=== PATIENT | male | born 1940 | race Caucasian/White ===

== ENCOUNTER 2016-09-05 19:13 | Inpatient (IN) | payer MEDICARE, OTHER ==
[~2016-09-05] VITALS: Ht 182.9 cm; Wt 120.0 kg
--- NOTE | ~2016-09-05 | ECH ---
Transthoracic Echocardiography Report (TTE) Demographics Patient Name DILIA GREENE V Date of Study 09/06/2016 Patient Number [id number] Visit Number [id number] Date of 1940 Room Number 306 Accession Number [id number] Gender Male Age 75 year(s) Referring Inga Do Silverware Etcher Krystal Johnston [facility] Physician Physician Interpreting Beverly Carrasco Industrial Fabric Cutter Physician MD Supervising Ordering Physician Inga Do MD, MD/P Nurse Stress Telephone Interceptor Operator Conclusions Summary Technically fair exam. The estimated left ventricular ejection fraction is 40-45% The left ventricle is mildly dilated . Mildly reduced right ventricular function. Mildly dilated right ventricle. The right atrium is mild to moderately dilated. Mild mitral regurgitation by color Doppler. The patient is known to have a tissue aortic valve, no other information available at this time. Mean gradient across valve 11mmHg, peak velocity 2.2m/s found at apex. There is mild periprosthetic regurgitation. Mild tricuspid regurgitation by color Doppler. There is mild pulmonary hypertension. The pulmonary pressure (RVSP) is 41 mmHg. Procedure Type of Study TTE procedure:Echo Complete SF. Procedure Date Date: 09/06/2016 Start: 07:42 AM Technical Quality: Fair due to body habitus. Indications:Shortness of breath, paroxysmal a-fib and Congestive heart failure. Additional Indications:tissue AVR no other info available Appropriate Use Criteria: 9 Height: 72 inches Weight: 261 pounds BSA: 2.39 m Rhythm: Atrial fibrillation HR: 96 bpm BP: 109/57 mmHg M-Mode/2D Measurements LV Diastolic Dimension: 6.15 cm LV Systolic Dimension: 5.37 cm LV Septum Diastolic: 0.95 cm LV PW Diastolic: 1.03 cm AO Root Dimension: 2.44 cm LA Dimension: 3.68 cm RV Diastolic Dimension: 3.17 cm LA volume: 62.21 ml LA volume index: 26 ml/m LVOT VTI: 28.3 cm RV Base: 4.7 cm RV Mid: 3.4 cm RV Length: 7.6 cm TAPSE: 1.4 cm TDI-S': 13 cm/s Doppler Measurements AV Peak Velocity: 2.2 m/s MV Peak E-Wave: 1.08 m/s AV Peak Gradient: 19.36 mmHg AV Mean Gradient: 11.07 mmHg MV P1/2t: 59.1 msec LVOT Peak Velocity: 1.73 m/s MV Deceleration Time: 174 msec AV P1/2t: 283.6 msec MV Area (PHT): 3.72 cm TR Velocity:3.03 m/s PV Peak Velocity: 0.94 m/s TR Gradient:36.75 mmHg PV Peak Gradient: 3.5 mmHg Estimated RAP:5 mmHg Estimated PASP: 41.75 mmHg Estimated RVSP: 42 mmHg A' Lateral Velocity: 0.05 m/s E' Lateral Velocity: 0.1 m/s RA Area: 26.56 cm Findings Left Ventricle The left ventricle is mildly dilated . Diastolic function indeterminate due to patient's arrhythmia. Right Ventricle Mildly reduced right ventricular function. Mildly dilated right ventricle. Left Atrium Normal left atrial size. Right Atrium The right atrium is mild to moderately dilated. Mitral Valve Mild mitral annular calcification. Mild mitral regurgitation by color Doppler. Aortic Valve The patient is known to have a tissue aortic valve, no other information available at this time. Mean gradient across valve 11mmHg found at apex. There is mild periprosthetic regurgitation. There is mild aortic regurgitation by color Doppler. Tricuspid Valve Normal appearing tricuspid valve. Mild tricuspid regurgitation by color Doppler. There is mild pulmonary hypertension. The pulmonary pressure (RVSP) is 41 mmHg. Pulmonic Valve The pulmonic valve is not well visualized. Mild pulmonic valve regurgitation by color Doppler. Pericardial Effusion No evidence of pericardial effusion. Miscellaneous Visualized portions of the aortic root and ascending aorta appear normal in size. Pleural Effusion No evidence of pleural effusion. Contractility Score LV regional wall motion:(0-Non visualized 1-Normal 2-Hypokinesis 3-Akinesis 4-Dyskinesis 5-Aneurysm) Signature
--- NOTE | 2016-09-06 00:12 | ER ---
ADMIT: 09/05/2016 RM/LOC: 306 [facility] MR#: [id number] [address] [facility] [place], [place] [address] [place] [address] [place] [address] Emergency Room Report SEX: M AGE: 75 : 1940 DATE: 09/05/2016 CHIEF COMPLAINT: Respiratory distress. HISTORY OF PRESENT ILLNESS: The patient is a 75-year-old male with paroxysmal atrial fib, CHF, type 2 diabetes, hypertension, hyperlipidemia, chronic kidney disease, COPD, traveling from [place] the past week through [place] when he became increasingly short of breath, weak 3-4 days ago. Admits to diffuse body aches, nonproductive cough. ALLERGIES: VIOXX, PENICILLIN, CITRUS, TETANUS. MEDICATIONS: Please see nurse's MAR. PAST MEDICAL HISTORY: Paroxysmal atrial fib, CHF, type 2 diabetes, hypertension, hyperlipidemia, GERD, seasonal allergic rhinitis with chronic sinusitis, gout, low vitamin D, chronic kidney disease stage III, degenerative disk disease, degenerative joint disease, primarily knees, COPD, bladder cancer, transitional cell carcinoma. PAST SURGICAL HISTORY: Multiple cystoscopies, multiple knee arthroscopies, tonsillectomy, finger amputation, aortic valve replacement tissue in 2008 at [facility]. SOCIAL HISTORY: , previous smoker, quit 2008 after a three pack per day for 55 years totaling 165 pack-years. 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 FAMILY HISTORY: Positive for premature ischemic heart disease. REVIEW OF SYSTEMS: A 12-point review of systems is negative for all other systems, illnesses, or operations except as outlined above. PHYSICAL EXAMINATION: VITAL SIGNS: Temp 98, pulse 122/105, heart rate 108, respirations 30, SaO2 of 96% on room air, weight 121.5 kg, up 7.3 pounds since the of the last week when he was in [place]. GENERAL: Moderate distress, diaphoretic, respiratory distress. HEENT: Normocephalic. No evidence of epistaxis, rhinorrhea, or otorrhea. NECK: Supple without lymphadenopathy or thyromegaly. CHEST: Breath sounds equal with expiratory wheeze noted throughout. HEART: Tachycardic, irregular without murmur or gallop. 2+ pedal ankle edema. ABDOMEN: Soft, obese, nontender, and nondistended. Bowel sounds hypoactive. EXTREMITIES: Multiple abrasions. Mild cellulitis, anterior shins. NEURO: EOMI. PERRLA. No evidence of drift, dysarthria, or ataxia. Gait not assessed due to weakness. MEDICAL DECISION MAKING: EKG shows atrial fibrillation with RVR, rate of 110, nonspecific interventricular conduction delay. AFib has replaced sinus rhythm ADMIT: 09/05/2016 RM/LOC: 306 [facility] MR#: [id number] [address] [place] [phone] [place] [address] [place] [address] Emergency Room Report SEX: M AGE: 75 : 1940 since 2014. WBC 23.1, hemoglobin 12.3, CRP 43.4. Sodium 120, bicarb 15, glucose 213, creatinine 2.2. Lactic 7.8, INR 1.29, calcium 7.6, magnesium 0.8, anion gap 31, CK 825, MB 15.2, troponin 0.25. BNP 27,979, procalcitonin 5.94. The patient was given two DuoNeb, Solu-Medrol, magnesium with marked improvement, Lasix 40 mg IV push, Levaquin 500 mg IV piggyback. Discussed findings and disposition with Dr. Xiong, who agreed and requested ICU to call for orders. Due to the patient's presentation, findings, and intervention, 30 minutes of critical care is warranted. DIAGNOSES: 1. Paroxysmal atrial fibrillation with rapid ventricular response. 2. Hyponatremia. 3. Hypomagnesemia. 4. Acute exacerbation of chronic obstructive pulmonary disease. 5. Chronic kidney disease, stage II. 6. Congestive heart failure. 7. Severe sepsis syndrome. RECOMMENDATION: Admit inpatient ICU, Dr. Xiong. ADMISSION/DISCHARGE CONDITION: Fair. CODE STATUS: The patient is a full code. Hermann Cooper MD/ modl JOB #: [id number] CC: Smooth Xiong MD, Attending Physician Smooth Xiong MD, Family Physician Smooth Xiong MD
[2016-09-10] MEDS ORDERED: CARDIZEM CD300 MG PO (10:55)
[2016-09-10] MEDS ORDERED: ALDACTONE DPS25 MG PO (10:55)
[2016-09-10] MEDS ORDERED: OMEPRAZOLE40 MG PO (10:55)
[2016-09-10] MEDS ORDERED: DEMADEX20 MG PO (10:55)
[2016-09-10] MEDS ORDERED: ASA325 MG PO (10:56)
[2016-09-10] MEDS ORDERED: VITAMIN D1000 UNI1 PO (10:56)
[2016-09-10] MEDS ORDERED: ALLEGRA DPS180 MG PO (10:56)
[2016-09-10] MEDS ORDERED: MICRO-K DPS10 MEQ PO (10:56)
[2016-09-10] MEDS ORDERED: ZYLOPRIM-DPS300 MG PO (10:58)
[2016-09-10] MEDS ORDERED: APAP PO (10:58)
[2016-09-10] MEDS ORDERED: HYDRO PO (10:58)
[2016-09-10] MEDS ORDERED: LIPITOR40 MG PO (11:00)
[2016-09-10] MEDS ORDERED: FOLIC ACID0.4 MG PO (11:01)
[2016-09-10] MEDS ORDERED: DULERA 200/58.8 GM IH (11:01)
[2016-09-10] MEDS ORDERED: GLUCOTROL DPS5 MG PO (11:02)
[2016-09-10] MEDS ORDERED: SPIRIVA18 MCG IH (11:02)
[2016-09-10] MEDS ORDERED: DELTASONE DPS10 MG PO (11:02)
--- NOTE | 2016-09-17 14:37 | CO ---
ADMIT: 09/05/2016 RM/LOC: 420 [facility] MR#: [id number] 26[address] [facility] [address] [place] [phone] DILIA [place] [address] [place] [address] Consultation SEX: M AGE: 75 : 1940 Corrected: 09/07/20162015 ajf DATE OF CONSULTATION: 09/07/2016 ATTENDING PHYSICIAN: Smooth Xiong CONSULTING PHYSICIAN: Nimesh Del Cid MD REASON FOR CONSULT: Elevated troponin with ejection fraction of 40% to 45%. This is Gayatri Simon RN, scribing for Dr. Santiago Del Cid. HISTORY OF PRESENT ILLNESS: Dilia is a pleasant 75-year-old gentleman, I have been asked to see in Cardiology consultation by Dr. Xiong for an elevated troponin with decreased ejection fraction. He recently came back to [place] from [place]. He has past medical history of aortic valve replacement in 2008 tissue valve, nonobstructive coronary artery disease at that time. Last echocardiogram was documented from [facility] on 10/08/2014 showing ejection fraction of 60%. He does have history of atrial fibrillation prior to aortic valve replacement, but does not look like he has had any since that time. He saw Dr. Magallanes in [place] in 2014 and has not followed up with Cardiology to my knowledge since then. Dilia presented to [facility] 2 days ago with complaints of bilateral wrist pain after a fall. During his workup, he did discuss some shortness of breath on exertion, and examination demonstrated significant wheezing bilaterally. Further workup included cardiac enzymes which demonstrated a peak troponin of 0.2 on 09/05 slowly trending down to 0.060 today. CK was elevated on arrival at 825 trending down as well, and MB currently is 8.6 with initial of 15.2. His CRP is 43.4. He also has hyponatremia and hypokalemia. Blood sugars are still elevated at 191, currently being treated through primary care. He did have elevated proBNP of almost 28,000 on arrival. On discussing with him currently, he denies any chest discomfort. He does say that he continues to be short of breath. He appears to have some mildly labored breathing at rest. He also notes some increased edema and orthopnea. PAST MEDICAL HISTORY: 1. History of tissue valve replacement with aortic valve surgery. 2. History of chronic heart failure. 3. Gastroesophageal reflux disease. 4. Osteoarthritis. 5. Hyperlipidemia. 6. Hypertension. 7. Diabetes. ALLERGIES: ALLERGIES INCLUDE TETANUS AND DIPHTHERIA TOXOIDS AND VIOXX. MEDICATIONS: Current medications include: ADMIT: 09/05/2016 RM/LOC: 420 [facility] MR#: [id number] [address] [address] DILIA [place] [address] [place] [address] Consultation SEX: M AGE: 75 : 1940 1. Aspirin 325 daily. 2. Cardizem 300 daily.. 3. Deltasone 20 daily. 4. Potassium chloride 40 mEq daily and additional 40 b.i.d. today. 5. Zyloprim 300 mg daily. 6. Dulera two puffs inhalation b.i.d. 7. Spiriva 18 mcg daily. 8. NovoLog insulin sliding scale before meals and at bedtime. 9. Heparin drip per protocol. 10.Vancomycin 1.5 g IV q.12 hours. FAMILY HISTORY: Positive family history of heart disease in father. Positive family history of stroke in uncle. SOCIAL HISTORY: Former tobacco use. He is retired. , living in [place] in [facility], visiting family here in [facility]. REVIEW OF SYSTEMS: GENERAL: Currently, states he is tired. Otherwise, has no significant increased fatigue. No recent fever, chills, or sweats, or weight changes. EYES: Denies any glaucoma or cataracts. ENT: Denies hearing loss or problems with nose, mouth or throat. RESPIRATORY: He has significant wheezing throughout. No hemoptysis. GASTROINTESTINAL: Denies heartburn or difficulty swallowing. No change in bowel habits. Denies dark or bloody stools. No history of ulcers, hiatal hernia, or gallbladder or liver disease. GENITOURINARY: History of nocturia about every 2 hours. Denies dysuria, hematuria, urinary tract infection, or kidney stones. Denies history of renal insufficiency or failure. MUSCULOSKELETAL: History of osteoarthritis. History of gout. Denies muscle or joint pains. ENDOCRINE: TSH is abnormal. No documented history of thyroid disease. Positive for diabetes. HEMATOLOGIC: Denies history of anemia, easy bruising, or cancer. NEUROLOGIC: Denies chronic headaches, dizziness, syncope, stroke, seizures or numbness or tingling. PSYCHIATRIC: Denies history of mental illness or feelings of depression. PHYSICAL EXAMINATION: VITAL SIGNS: Blood pressure 153/55, heart rate 90, respirations 16, temperature 96.0, oxygenation 96% on room air. SKIN: Cerulean, warm and dry. EYES: Sclerae clear. No xanthelasmas. ENT: Oral mucosa is pink and moist. NECK: Positive JVD. LUNGS: Distant breath sounds bilaterally. Wheezes scattered throughout. HEART: Regular rate and rhythm. Normal S1, S2. No murmurs, rubs or gallops. ABDOMEN: Soft and nontender. MUSCULOSKELETAL: Gait is normal. ADMIT: 09/05/2016 RM/LOC: 420 [facility] MR#: [id number] [address] [place] [phone] DILIA GREENE [address] [address] [place], [place] [id number] Consultation SEX: M AGE: 75 : 1940 EXTREMITIES: No cyanosis or clubbing. 1+ edema bilaterally. DIAGNOSTIC DATA: Echo on 09/06, showed EF of 40% to 45% with mild MR. Tissue aortic valve replacement with mild regurgitation. Sodium 123, potassium 3.4, BUN 27, creatinine 1.0, glucose 191, magnesium 2.0, CK 276, MB 8.6, troponin 0.060, proBNP 27,979, TSH 0.305, CRP 43.4, INR 1.29. White blood cell count 9.4, hemoglobin 11.0, hematocrit 31.7, platelets 260. ASSESSMENT AND PLAN: 1. Abnormal troponin. 2. Cardiomyopathy. 3. Chronic obstructive pulmonary disease. 4. Acute systolic heart failure. Recommend IV Lasix 40 mg IV b.i.d. today to help with improved diuresis for his edema and monitor response. I suspect his troponin elevation is due to systolic heart failure and pulmonary issues. I do not currently see any suggestion of ischemia. I recommend discontinuing heparin at this point. I recommend stress test as an outpatient once his breathing and lung status have improved. He is reluctant to pursue that at this time and I will leave that up to him. Thank you for the consultation. I have read and agree with the documentation that has been completed regarding this visit. By signing this record, I attest that the documentation was completed in my physical presence and is an accurate record of the encounter. Gayatri Simon RN / Nimesh Del Cid MD / sherrie JOB #: [id number] CC: Smooth Xiong, Attending Physician Smooth Xiong, Family Physician Corrected: 09/07/20162015 melchor
--- NOTE | 2016-09-18 09:01 | HP ---
ADMIT: 09/05/2016 RM/LOC: 306 [facility] MR#: [id number] [address] [facility] [address] [place] [place], [place] [address] DILIA [place] [address] [place] [address] History and Physical SEX: M AGE: 75 : 1940 DATE OF SERVICE: CHIEF COMPLAINT: Shortness of breath and weakness. HISTORY OF PRESENT ILLNESS: This is a 75-year-old gentleman. He has a past medical history of some underlying heart disease and CHF. He is status post aortic valve replacement with a tissue valve. He has diabetes, hypertension, history of atrial fibrillation but has not had that since his heart valve surgery. Also has history of gout. He reports he was in his usual state of health until a few weeks ago when he left his home in [place]. At that time, he was found to have high blood sugars and was put on metformin. At that time, he said his sugars were in the 600s. Since that time, he has stopped eating a lot of sweets and has not really eaten very much probably because he has not felt very well. He started getting weak he thinks about the time he started metformin and that has led to his other problems. He says he also complained of some bilateral wrist pain and some shoulder pain. He did nearly fall out of his motor home about 3 days ago. He was trying to exit walking down backwards down the steps. 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 He then swung around clockwise and hit his back on the motor home. He did skin his knees from this little fall as well. Over the last few months, he has had some shortness of breath and a little bit of wheezing. He thinks maybe it is a little worse at the current time, he is uncertain though. He denies any specific chest pain or shortness of breath, just mostly of his legs feeling weak and pain in the joints as his main problem. PAST MEDICAL HISTORY: Aortic valve surgery; chronic heart failure, unknown type; GERD; chronic pain; chronic osteoarthritis, multiple joints, specifically worse at the knees. He has hyperlipidemia, hypertension, and diabetes. HOME MEDICATIONS: 1. Diltiazem CD 300 mg daily. 2. Torsemide 20 mg twice a day. 3. Spironolactone 25 mg daily. 4. Omeprazole 40 mg daily. 5. Fexofenadine 180 mg daily. 6. Aspirin 325 mg daily. 7. Vitamin D 1000 units daily. 8. Potassium 10 mEq daily. 9. Hydrocodone 5/500 two tabs q.i.d. as needed. 10.Allopurinol 300 mg daily. 11.Atorvastatin 40 mg daily. 12.Folic acid 400 mcg daily. 13.Metformin 1000 mg daily. SOCIAL HISTORY: He has a history of smoking but none currently. Currently retired. He is , lives in [place] but has motor home, has family here in [facility]. ADMIT: 09/05/2016 RM/LOC: 306 [facility] MR#: [id number] [address] [address] [place] [address] [address] [address] [place], [place] [id number] History and Physical SEX: M AGE: 75 : 1940 FAMILY HISTORY: Reviewed but noncontributory. REVIEW OF SYSTEMS: Other complete review of systems are reviewed and negative except as above. In addition, he has lost 20 pounds in 2 weeks. He thinks it is from changing his diet because of his diabetes. He denies any increased swelling in his legs. His abdominal girth is actually less. He started to wear a belt because of his pants fitting looser. PHYSICAL EXAMINATION: VITAL SIGNS: Pulse 99, blood pressure 133/58, oxygen saturation 95% on room air, respirations 22. GENERAL: Well-appearing overweight 75-year-old gentleman, no apparent distress. He is alert and oriented. HEENT: Pupils are equal, round, and reactive to light and accommodation. His extraocular muscles are intact. His mouth is very dry. Throat is clear. NECK: Supple. Trachea midline. Thyroid not palpable. HEART: Irregularly regular rhythm. LUNGS: Have diffuse inspiratory and expiratory wheezes. ABDOMEN: Protuberant but soft without any tenderness. EXTREMITIES: His lower extremities have some venous stasis changes. He has a few venous stasis ulcers. He has some abrasions on his anterior shins. He can move all extremities. He has severe wrist pain bilaterally. He has tenderness with compression of his radius and ulna on the left as well as with rotation of his forearm. He also has pain with flexion and extension of the left wrist and direct pressure over the wrist bones elicit minor tenderness as well. Right wrist is tender in the wrist joint itself. No pain in the forearm. Left shoulder has normal rotation. He has severe pain with any abduction beyond 90 degrees. He has some tenderness posterior to the muscles. Biceps tendon is not tender. He is tender over the AC joint on the right. LABORATORY AND X-RAY DATA: INR is 1.29, procalcitonin is 5.94, lactic acid is 7.8. X-ray shows some cardiomegaly, mild vascular congestion or interstitial prominence. I do not see any effusions. CMP; sodium is 120, potassium 3.8, chloride 78, bicarb 15, BUN 26, creatinine 2.2, calcium 6.9, phosphorus 5.2, magnesium is 0.8. Creatine kinase 125, MB is 15%, troponin is 0.205, NT-proBNP is 27,979. CRP is 43.4. CBC; white count is 23.1, hemoglobin 12.3, platelets of 347. ASSESSMENT: 1. Shortness of breath. 2. Chronic congestive heart failure. 3. Wheezing. 4. Hypovolemic hyponatremia, may be related to his medications or decreased intake. He has also been drinking a lot of water recently with increased thirst despite compensatory. However, it may have flushed his sodium low. We will check urine lytes and see how that looks. He has elevated CK and troponin. 5. Atrial fibrillation. ADMIT: 09/05/2016 RM/LOC: 306 [facility] MR#: [id number] 26[address] [facility] [address] [place] [phone] DILIA [place] [address] [place] [address] History and Physical SEX: M AGE: 75 : 1940 6. Elevated lactic acid. 7. Diabetes. 8. Acute kidney injury. PLAN: We are going to treat him with some IV antibiotics as he may have underlying pneumonia. Given his wheezing, this may be heart failure, so we will check an echo to see what his EF is and the function of his valves. Give him some IV steroids probably because of his wheezing to make sure this can get better. Also, he may have a gout flare in his wrists and possible shoulder. Given the severe nature of his pain, I will x-ray these areas to make sure there is no fracture also. We will control his blood sugars with sliding scale insulin. We will hold his metformin obviously for now as well. He will be on heparin drip for the atrial fibrillation as well as for the possible acute coronary syndrome. We will get PT and OT involved with him as well. I wanted to give him a fluid bolus. However, with his wheezing and heart failure on x-ray, I felt that probably was not a great plan. Plus, by doing that, we may change his sodium so fast and this may give him some brain damage with some osmotic demyelination. So, we will be careful to follow his sodiums closely. We will follow him closely here as well as his kidney function closely as well, as well as his electrolytes. We will request his outside records to make sure we are not missing anything. Smooth Xiong MD/ sherrie JOB #: [id number] CC: Smooth Xiong, Attending Physician Smooth Xiong, Family Physician
--- NOTE | 2016-10-01 13:15 | DS ---
ADMIT: 09/05/2016 RM/LOC: 420 [facility] MR#: [id number] [address] [facility] [address] [place] [phone] DILIA [place] V [address] [place] [address] General Discharge Summary SEX: M AGE: 75 : 1940 ADMISSION DATE: 09/05/2016 DISCHARGE DATE: 09/09/2016 FINAL DIAGNOSES: 1. Dehydration. 2. Hyponatremia. 3. Congestive heart failure. 4. Hypokalemia. 5. Hypomagnesemia. 6. Acute kidney injury, elevated troponin. 7. Joint pains. 8. Weakness. 9. Hypotension. 10.Cardiomyopathy. 11.Atrial fibrillation. 12.Diabetes. 13.Chronic obstructive pulmonary disease with exacerbation. REASON FOR ADMISSION: This is a 75-year-old gentleman with multiple medical problems, who presented after not feeling very well and being very weak. He had a partial fall prior to coming in. See H and P for further details. HOSPITAL COURSE: The patient was admitted, initially found to have some low blood pressure and was hypoxic. Gave a little bit of IV fluid. Monitored him very closely. Controlled his blood sugars with insulin. He had a lot of pain and complained of this mostly. Because of his shortness of breath, he did have a CT scan of his chest. Wound care was obtained because of his lower extremity wounds. He had heparin drip because of mildly elevated troponin, this was eventually stopped. He worked with Therapy. Because of wound, he needed Unna boot and his legs elevated. He had Levaquin for an antibiotic because of his shortness of breath and cough. He was put on Dulera and Spiriva for inhalers because of his severe wheezing. He was given some Lasix and ultimately, his sodium did start to improve. By the , sodium was 127, up from about 121. Ortho did consult to help with issues of joint pains. He was doing okay, walking around alright with a walker. Labs were stable, but needed further monitoring, so he was set up to be discharged on the with plan for him to have a BMP to be done in the future in one week's time. Medication monroy, he will be on a little bit of steroid taper because of his lungs as well, and he will have a four-wheeled walker. Smooth Xiong MD/ sherrie JOB #: [id number] CC: Smooth Xiong MD, Attending Physician Smooth Xiong MD, Family Physician
--- NOTE | 2016-10-11 11:55 | CO ---
ADMIT: 09/05/2016 RM/LOC: 420 [facility] MR#: [id number] [address] [facility] [address] [place] [id number] [address] [place] [address] [place] [address] Consultation SEX: M AGE: 75 : 1940 DATE OF CONSULTATION: 09/06/2016 ATTENDING PHYSICIAN: Smooth Xiong CONSULTING PHYSICIAN: Karie Albright MD CHIEF COMPLAINT: Bilateral wrist pain, left elbow pain, and right shoulder pain. HISTORY OF PRESENT ILLNESS: This is a very complex 75-year-old male, who was admitted for multiple medical problems yesterday. For those, please see admission H and P by Dr. Xiong. Briefly, he has congestive heart failure and uncontrolled diabetes among other problems. Reason for the Orthopedic consultation is pain mentioned above. He was getting out of his motor home and kind of going backwards secondary to some weakness and other problems he has had medically. Lately, then he lose his balance. He did not actually fall down but he held on tightly with both of his wrists and has even down, he began to twist and forcibly hold onto the handle, kind of rotated around and hit the side of his motor home again without falling to the ground, but it did cause some soreness in his wrist. He was seen in the emergency room for any other medical problems and did mention his other issues of pain. Therefore, we have seen him for those. He normally lives in [place] and they RV during the summer months. They recently had been to [place] and now through here. He does have his nephew who is a local surgeon. He normally doctors in [place] as he is from the [facility] originally. He reports pain in bilateral wrists. The left elbow is sore and the right shoulder. PAST MEDICAL HISTORY: Aortic valve replacement, chronic heart failure, GERD, chronic pain, chronic osteoarthritis in multiple joints including the knees as well as above, hyperlipidemia, hypertension, diabetes suboptimal control. MEDICATIONS: Reviewed in the electronic medical record. ALLERGIES: VIOXX, TETANUS, CITRUS, AND PENICILLINS. SOCIAL HISTORY: Not currently smoking. He does have a history in the past. He is . His accompanies him. He lives in [place] during the winter months from December through spring, in the [facility] during the summer and originally was from the [facility] and has primary care in [place], who takes care of his medications annually for him. Again, he has family here in [place]. FAMILY HISTORY: Noncontributory. REVIEW OF SYSTEMS: As above and unchanged from the H and P by Dr. Xiong. PHYSICAL EXAMINATION: GENERAL: Otherwise comfortable-appearing 75-year-old male, in no distress. He is oriented x3. Pleasant and interactive. He is sitting comfortably in a chair in room 420. ADMIT: 09/05/2016 RM/LOC: 420 [facility] MR#: [id number] [address] [place] [id number] [address] [place] [id number] Consultation SEX: M AGE: 75 : 1940 EXTREMITIES: Exam of the right wrist shows the skin is intact without acute abdominal findings, IV is in place. He has tenderness with palpation at the base of the first CMC joint. He has generalized mild tenderness with palpation diffusely about the wrist. He does have good range of motion with resisted wrist extension. He has pain up into the extensor tendons and muscles compartments are all soft and supple. Neurovascular status is intact. Exam of the right shoulder shows he has some soreness with range of motion. No palpable defect. Minimal pain with any palpation with good passive motion. He has a little weakness and soreness but he is able to actively move the shoulder. Exam of the left wrist shows that he has tenderness with palpation of the 1st CMC joint as well. Diffuse generalized tenderness about the remainder of the wrist joint, known stability, has again similar soreness with wrist extension into the extensor tendon of the muscles. None with wrist flexion. Compartments are soft and supple. Neurovascular status is intact. Exam of the left elbow shows he has some tenderness with palpation over the joint line and mild over the radial head. Just mild soreness with pronation and supination there as well. Nothing significant. No palpable effusion of the joint line is appreciated today. He has got good range of motion, only some stiffness. Exam of the left shoulder feels that he has a good range of motion, reasonable strength, a little soreness and stiffness. Overall, his neurovascular status is intact. I reviewed previously obtained x-rays of the wrist bilaterally. First the left shows a small bony dottie on fragment just distal to the ulnar styloid. No obvious acute abnormality there. He has chronic degenerative changes about the radiocarpal joint as well as the DRUJ and severe end-stage changes about the 1st CMC joint. Otherwise, no acute bony abnormalities. DIAGNOSTIC DATA: X-rays of the right wrist show diffuse generalized changes about the wrist. Arthritis in the radiocarpal joint as well as mild in DRUJ and severe changes about the 1st CMC joint. Again, no acute bony abnormalities. X-ray of the left elbow was reviewed shows degenerative changes about the joint with osteophyte formation in the radial head as well as diffusely about the distal humerus. Radiologist had marked an area of a suspicious line that could be a lucency. Really, at this time, there does not appear to be an acute fracture. He does, however, have small joint effusion. He does not have clinical pain correlating to the same area. Reviewed x-rays of the left forearm again showed degenerative changes about the wrist and the small bony fragment at least 2 cm anterior to the area of the distal ulna would be out of place for any type of an avulsion off the ulnar styloid. He otherwise is unremarkable. I reviewed x-rays of the right shoulder show well centered glenohumeral joint without dislocation, mild degenerative changes about the AC joint. Again, no acute bony abnormalities. ADMIT: 09/05/2016 RM/LOC: 420 [facility] MR#: [id number] [address] [id number] [address] [address] [place] [address] Consultation SEX: M AGE: 75 : 1940 ASSESSMENT: 1. 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 2. First carpometacarpal arthritis of thumb. 3. Bilateral forearm strain and wrist sprain. 4. Right shoulder strain. 5. Left elbow sprain. PLAN: May have Dilia meet with Physical and Occupational Therapy, work on few gentle exercises to improve his motion, calm down some of the soreness. Again, bilateral wrist braces for protection that he can wear as needed. He did not have any significant findings to suggest anything otherwise as far as instability goes on physical exam. I will treat him conservatively as above. I thank Dr. Xiong for requesting Orthopedic evaluation and allowing us to participate in the care this patient. We will follow him along his course while he is in town. He will establish care with his primary care and orthopedist if his problems persist in the future. Jose Gordon PA-C / Karie Albright MD / sherrie JOB #: [id number] CC: Smooth Xiong, Attending Physician Smooth Xiong, Family Physician
== END 2016-09-09 13:00 | disposition home or self-care (01) | DRG 291 ==
LOC: ER 19:13 → 4PCU 20:30 → 3ICU 20:30 → 4PCU 09-06 13:19
PROVIDERS: ADMIT Internal Medicine
DX: I13.0 Hypertensive heart and chronic kidney disease with heart failure and stage 1 through stage 4 chronic kidney disease, or unspecified chronic kidney disease (principal); I50.21 Acute systolic (congestive) heart failure; N17.9 Acute kidney failure, unspecified; E11.22 Type 2 diabetes mellitus with diabetic chronic kidney disease; E11.65 Type 2 diabetes mellitus with hyperglycemia; E86.0 Dehydration; I42.9 Cardiomyopathy, unspecified; I48.0 Paroxysmal atrial fibrillation; E87.1 Hypo-osmolality and hyponatremia; J44.1 Chronic obstructive pulmonary disease with (acute) exacerbation; L97.909 Non-pressure chronic ulcer of unspecified part of unspecified lower leg with unspecified severity; E87.6 Hypokalemia; E83.42 Hypomagnesemia; S63.501A Unspecified sprain of right wrist, initial encounter; S63.502A Unspecified sprain of left wrist, initial encounter; S43.401A Unspecified sprain of right shoulder joint, initial encounter; S53.402A Unspecified sprain of left elbow, initial encounter; W18.30XA Fall on same level, unspecified, initial encounter; E78.5 Hyperlipidemia, unspecified; K21.9 Gastro-esophageal reflux disease without esophagitis; J30.9 Allergic rhinitis, unspecified; I25.10 Atherosclerotic heart disease of native coronary artery without angina pectoris; J32.9 Chronic sinusitis, unspecified; G89.29 Other chronic pain; M15.9 Polyosteoarthritis, unspecified; M10.9 Gout, unspecified; N18.3 Chronic kidney disease, stage 3 (moderate); Z85.51 Personal history of malignant neoplasm of bladder; Z95.2 Presence of prosthetic heart valve; Z87.891 Personal history of nicotine dependence; Z82.49 Family history of ischemic heart disease and other diseases of the circulatory system; Z79.84 Long term (current) use of oral hypoglycemic drugs; Z79.82 Long term (current) use of aspirin; Z66 Do not resuscitate